=== PATIENT | male | born 1960 | race Caucasian/White ===

== ENCOUNTER 2016-09-20 20:37 | Inpatient (IN) | payer OTHER ==
[~2016-09-20] VITALS: Ht 157.5 cm; Wt 72.0 kg
[2016-09-20 21:11] LABS: HEMATOCRIT 44.5 % (38.0-50.0); MCH 32.2 PG (29.0-34.0); MCHC 35.3 G/DL (30.0-36.0); MCV 91.4 FL (86-99); MEAN PLAT.VOLUME 9.2 uM^3 (9.0-12.4); PLATELET COUNT 208 K/uL (156-360); RBC DIS.WIDTH-SD 41.8 % (39-53); RED BLOOD COUNT 4.87 M/uL (4.00-5.50); WHITE BLOOD COUNT 12.3 K/uL (4.1-10.2)
[2016-09-20 21:26] LABS: CHLORIDE 104 mEq/L (99-109); POTASSIUM 4.1 mEq/L (3.7-5.4); SODIUM 139 mEq/L (136-147)
[2016-09-20 21:27] LABS: GLUCOSE 128 mg/dL (70-99)
[2016-09-20 21:29] LABS: ANION GAP 10 MEQ/L (2-14)
[2016-09-20 21:31] LABS: GFR ESTIMATE (CALCULATED) > 59 mL/min/
[2016-09-20 21:32] LABS: TROP-I INTERPRETATION NEGATIVE; TROPONIN-I < 0.01 ng/mL (0.0-0.30); UREA NITROGEN (BUN) 14 mg/dL (9-23)
[2016-09-20 22:57] LABS: ADD MIUA? YES; BILIRUBIN NEGATIVE; BLOOD NEGATIVE; COLOR YELLOW ((YELLOW)); GLUCOSE (STRIP) NEGATIVE; KETONES NEGATIVE; LEUKOCYTES MODERATE; NITRITE NEGATIVE; PH, URINE 6.5 (5-8); PROTEIN (STRIP) NEGATIVE; UROBILINOGEN 0.2 MG/DL (0.2-1.0)
[2016-09-21 00:27] LABS: TOTAL BILIRUBIN 0.5 mg/dL (0.0-1.0)
[2016-09-21 00:28] LABS: ALKALINE PHOSPHATASE 55 IU/L (3-129)
[2016-09-21 00:31] LABS: BACTERIA 1+; CASTS NONE SEEN /LPF; CRYSTALS NONE SEEN; EPITHELIAL CELLS 2+; MUCUS NONE SEEN; RED BLOOD CELLS NONE SEEN /HPF (0-5); UCUL ADDED? NO
[2016-09-21 00:31] LABS: DIRECT BILIRUBIN 0.2 mg/dL (0.0-0.3)
[2016-09-21 00:44] LABS: LIPASE 3042 U/L (1.0-51.0)
[2016-09-21] MEDS ORDERED: PRAVACHOL20 MG PO (01:08)
[2016-09-21] MEDS ORDERED: ZYRTEC10 M3 PO (01:09)
[2016-09-21] MEDS ORDERED: SINGULAIR10 MG PO (01:09)
[2016-09-21] MEDS ORDERED: PROTONIX40 MG PO (01:09)
[2016-09-21 04:46] LABS: TRIGLYCERIDES 65 MG/DL (Normal: <150)
[2016-09-21 06:21] LABS: CHLORIDE 107 mEq/L (99-109); POTASSIUM 4.1 mEq/L (3.7-5.4); SODIUM 136 mEq/L (136-147)
[2016-09-21 06:23] LABS: GLUCOSE 110 mg/dL (70-99)
[2016-09-21 06:24] LABS: ANION GAP 8 MEQ/L (2-14)
[2016-09-21 06:25] LABS: TOTAL BILIRUBIN 0.4 mg/dL (0.0-1.0)
[2016-09-21 06:26] LABS: EOSINOPHIL (%) 0 % (0-5); HEMATOCRIT 41.2 % (38.0-50.0); LYMPHOCYTE COUNT 0.8 K/uL (1.0-2.8); MCH 31.7 PG (29.0-34.0); MCHC 34.7 G/DL (30.0-36.0); MCV 91.4 FL (86-99); MONOCYTE (%) 5.1 % (3-12); MONOCYTE COUNT 0.4 K/uL (0-0.8); NEUTROPHIL (%) 84.4 % (45-76); NEUTROPHIL COUNT 6.1 K/uL (1.8-6.4); PLATELET COUNT 201 K/uL (156-360); RBC DIS.WIDTH-CV 13.1 % (11.8-14.6); RBC DIS.WIDTH-SD 42.4 % (39-53); RED BLOOD COUNT 4.51 M/uL (4.00-5.50); WHITE BLOOD COUNT 7.2 K/uL (4.1-10.2)
[2016-09-21 06:27] LABS: ALKALINE PHOSPHATASE 46 IU/L (3-129); GFR ESTIMATE (CALCULATED) > 59 mL/min/
[2016-09-21 06:28] LABS: UREA NITROGEN (BUN) 13 mg/dL (9-23)
[2016-09-21 06:30] LABS: LIPASE 608 U/L (1.0-51.0)
[2016-09-21 13:56] VITALS: BP 108/72
[2016-09-21 17:52] VITALS: BP 115/68
[2016-09-21 20:00] VITALS: BP 125/62
[2016-09-22] VITALS (7 sets, daily range): BP systolic 112–131; BP diastolic 60–73
[2016-09-22 08:22] LABS: TRIGLYCERIDES 41 MG/DL (Normal: <150)
[2016-09-23 04:26] VITALS: BP 123/77
[2016-09-23 06:45] LABS: ALKALINE PHOSPHATASE 48 IU/L (3-129); ANION GAP 12 MEQ/L (2-14); CHLORIDE 103 MEQ/L (99-109); GFR ESTIMATE (CALCULATED) > 59 mL/min/; GLUCOSE 96 mg/dL (70-99); LIPASE 53 U/L (1.0-51.0); POTASSIUM 3.7 MEQ/L (3.7-5.4); SAMPLE HEMOLYSIS CHECK 0; SAMPLE ICTERIC CHECK 0; SAMPLE LIPEMIA CHECK 0; SODIUM 137 MEQ/L (136-147); TOTAL BILIRUBIN 0.8 MG/DL (0.0-1.0); UREA NITROGEN (BUN) 11 mg/dL (9-23)
[2016-09-23 07:10] VITALS: BP 112/71
[2016-09-23 10:15] LABS: HEMATOCRIT 39.6 % (38.0-50.0); MCH 32.3 PG (29.0-34.0); MCHC 35.1 G/DL (30.0-36.0); MCV 91.9 FL (86-99); MEAN PLAT.VOLUME 9.4 uM^3 (9.0-12.4); PLATELET COUNT 163 K/uL (156-360); RBC DIS.WIDTH-CV 12.9 % (11.8-14.6); RBC DIS.WIDTH-SD 43.2 % (39-53); RED BLOOD COUNT 4.31 M/uL (4.00-5.50)
[2016-09-23 16:27] VITALS: BP 117/62
[2016-09-23 23:53] VITALS: BP 121/71
[2016-09-24 06:32] LABS: HEMATOCRIT 40.8 % (38.0-50.0); MCH 32.1 PG (29.0-34.0); MCHC 35.3 G/DL (30.0-36.0); MCV 91.1 FL (86-99); PLATELET COUNT 190 K/uL (156-360); RBC DIS.WIDTH-CV 12.8 % (11.8-14.6); RBC DIS.WIDTH-SD 42.8 % (39-53); RED BLOOD COUNT 4.48 M/uL (4.00-5.50); WHITE BLOOD COUNT 9.6 K/uL (4.1-10.2)
[2016-09-24 06:38] LABS: ANION GAP 11 MEQ/L (2-14); CHLORIDE 102 MEQ/L (99-109); GFR ESTIMATE (CALCULATED) > 59 mL/min/; GLUCOSE 89 mg/dL (70-99); POTASSIUM 3.7 MEQ/L (3.7-5.4); SAMPLE HEMOLYSIS CHECK 0; SAMPLE ICTERIC CHECK 0; SAMPLE LIPEMIA CHECK 0; SODIUM 137 MEQ/L (136-147); UREA NITROGEN (BUN) 15 mg/dL (9-23)
[2016-09-24 08:37] VITALS: BP 115/69
== END 2016-09-24 12:40 | disposition home or self-care (01) | DRG 439 ==
LOC: EME 20:37 → EDOF 09-21 03:10 → 3EAST 09-21 13:12
PROVIDERS: Hospitalist; Internal Medicine; Physician Assistant
DX: K85.10 Biliary acute pancreatitis without necrosis or infection (principal); N39.0 Urinary tract infection, site not specified; M54.9 Dorsalgia, unspecified; E78.5 Hyperlipidemia, unspecified; F17.200 Nicotine dependence, unspecified, uncomplicated; R07.9 Chest pain, unspecified; G47.30 Sleep apnea, unspecified; R91.1 Solitary pulmonary nodule; D13.5 Benign neoplasm of extrahepatic bile ducts; K59.00 Constipation, unspecified; D72.829 Elevated white blood cell count, unspecified; Z87.11 Personal history of peptic ulcer disease
CPT/HCPCS: 71020; 74177; 76705; 80048; 80053; 80076; 81003; 83690; 84478; 84484; 85025; 85027; 86140; 87086; 93005; 99281; 99285; C9113; J0696; J1170; J1644; J2405; J3010; J7030; J7050; J7120; S0030

== ENCOUNTER 2016-11-05 06:30 | Day surgery (SDC) | payer OTHER ==
[~2016-11-05] VITALS: Ht 157.5 cm; Wt 63.5 kg
[~2016-11-05 06:30] MED LIST: NATURAL LUTEIN20 MG PO; OMEGA 3-6-9 11200 MG PO; PRAVACHOL20 MG PO; PRESERVISIO1 CAPSULE PO; PROTONIX40 MG PO; SINGULAIR10 MG PO; SUPER CALCIUM600 MG PO; ZYRTEC10 M3 PO
[2016-11-05 07:32] VITALS: BP 119/73
[2016-11-05] MEDS ORDERED: FLOMAX0.4 MG PO (07:50)
[2016-11-05] MEDS ORDERED: NORCO 5/3251 TABLET PO (10:10)
[2016-11-05 11:55] VITALS: BP 99/61
[2016-11-05 12:45] VITALS: BP 103/65
[2016-11-05 13:09] VITALS: BP 107/72
[2016-11-05 14:00] VITALS: BP 103/62
== END 2016-11-05 14:25 | disposition home or self-care (01) ==
LOC: SDC 06:30
PROC: 0FT44ZZ Resection of Gallbladder, Percutaneous Endoscopic Approach (ICD-10-PCS; principal; 2016-11-05)
DX: K80.10 Calculus of gallbladder with chronic cholecystitis without obstruction (principal); K21.9 Gastro-esophageal reflux disease without esophagitis; D64.9 Anemia, unspecified
CPT/HCPCS: 88304; J0330; J1100; J1170; J2250; J2405; J2710; J3010